=== PATIENT | female | born 1995 | race Caucasian/White ===

== ENCOUNTER → 2016-11-02 | Outpatient (CLI) | payer BC ==
[~2016-11-02] MED LIST: ALBU18002 INH; BUTACAP36 PO; DULO-24 PO; FEXO1TAB49 PO; FLUT1INH INH; GADAVIST IV PRN; HYDR-5688 PO; LORA-741 PO; MONT1TAB3 PO; QUET1TAB34 PO; QVRINH80 INH; RIZA10TA18 PO; VENL150C56 PO; VERA180T33 PO
--- NOTE | 2016-11-02 16:50 | DIAGNOSTIC IMAGING REPORT ---
MRI OF THE BRAIN AND IACS WITHOUT AND WITH IV CONTRAST CLINICAL HISTORY: Z87.828 History of traumatic head injury LIGHTHEADEDNESS, DIZZINESS, BALANCE DISORDER. TINNITUS. COMPARISON STUDY: No previous studies for comparison. TECHNIQUE: MRI of the brain was performed from the vertex to the skull base utilizing various T1 and T2 weighted sequences. Following the IV administration of 7.5 mL of Gadavist contrast, additional enhanced images were obtained. FINDINGS: Sagittal T1, axial diffusion, proton density and T2 weighted axial, coronal FLAIR, and pre and post axial T1-weighted images were acquired. These were supplemented with post gadolinium coronal T1 weighted images. No intra or extra-axial mass lesions are visualized. Axial diffusion-weighted images reveal no evidence of acute or subacute infarction. There is no evidence of ventricular dilatation. Proton density T2-weighted and FLAIR images reveal no significant intraparenchymal signal abnormalities. There are no abnormal flow voids. There is no evidence of pathologic enhancement. No cerebellopontine angle masses are visualized. The 7th and 8th nerve complexes appear normal bilaterally. IMPRESSION: Normal MRI of the brain. Electronically signed by: Zach Arreola M.D. 11/02/2016 4:48 PM Dictated Date/Time: 11/02/2016 4:45 PM
== END | disposition home or self-care (01) ==
LOC: C.MRI 14:59
PROVIDERS: ATTEND Physician Assistant
DX: Z87.828 Personal history of other (healed) physical injury and trauma (principal)

== ENCOUNTER 2016-12-23 19:50 | Emergency (ER) | payer BC ==
[~2016-12-23] VITALS: Ht 172.7 cm; Wt 82.1 kg
[2016-12-23 19:54] VITALS: TEMP 36.8; Ht 172.7 cm; Wt 82.1 kg
--- NOTE | 2016-12-23 20:20 | EMERGENCY ROOM VISIT NOTE ---
ED Visit Note First contact with patient: 20:11 CHIEF COMPLAINT: Finger laceration HISTORY OF PRESENT ILLNESS: This 21-year-old female patient presents to the emergency department ambulatory after cutting the left third finger with a coremaker earlier tonight. The bleeding has stopped. Denies weakness or numbness of the finger. The patient has full range of motion of the fingers. The patient denies any pain. The patient denies any other injuries. The patient' s tetanus shot is possibly not up to date. REVIEW OF SYSTEMS: A 6 system review of systems was completed with positives and pertinent negatives listed in the HPI. ALLERGIES: No known drug allergies MEDICATIONS: See nursing notes PMH: Chronic migraine, bipolar, anxiety, asthma SOCIAL HISTORY: The patient lives locally PHYSICAL EXAM: Vital Signs: Reviewed Nurse's notes, vital signs stable. GENERAL : This is a 21-year-old female, in no acute distress, well developed, well nourished. SKIN: There is a there is small, less than 0.5 cm skin avulsion type laceration on the distal aspect of the left third finger. The edges do not gape apart with traction. There is no foreign material in the wound and it looks clean. There is know bleeding. No deep structures such as tendons, bones, or nerves are seen in the base of the wound. Extension and flexion of the finger is full and strong. Full range of motion of the wrist and other fingers. Capillary refill less than 2 seconds. Normal sensation to light and sharp touch. EMERGENCY DEPARTMENT COURSE: I examined the patient. This is a very superficial skin avulsion. The wound was cleaned with saline. Gelfoam and bulky dressing were placed. The patient tolerated the procedure well. The patient was given a tetanus booster. The patient was discharged home in good condition. Current/Historical Medications Scheduled Beclomethasone Dip (Qvar), 1 PUFF INH DAILY Duloxetine Hcl (Cymbalta), 20 MG PO DAILY Fexofenadine Hcl (Susi Allergy), 180 MG PO DAILY Fluticasone Furoate-Vilanterol (Breo Ellipta), 1 PUFF INH QPM Montelukast Sodium (Singulair), 10 MG PO DAILY Quetiapine Fumarate (Seroquel), 200 MG PO QPM Venlafaxine Hcl (Effexor Extended Rel), 150 MG PO DAILY Verapamil Hcl (Calan Sr Ext Rel), 180 MG PO DAILY Scheduled PRN Albuterol Sulfate (Proair Respiclick), 2 PUFFS INH Q4H PRN for SOB/Wheezing Ggidxybqwj-Pwjuzvh-Ttywerfb (Fiorinal), 1 CAP PO BID PRN for Headache Lorazepam (Ativan), 0.5 MG PO BID PRN for Anxiety Rizatriptan Benzoate (Maxalt), 10 MG PO UD PRN for HEADACHE Allergies Coded Allergies: Dairy (Verified Adverse Reaction, Unknown, GI UPSET, 12/23/16) Uncoded Allergies: CONTRAST DYE (Allergy, Severe, ANAPHYLAXIS, 12/23/16) Vital Signs Date Time Temp Pulse Resp B/P (MAP) Pulse Ox O2 Delivery O2 Flow Rate FiO2 12/23/16 21:00 76 18 128/76 99 12/23/16 19:54 36.8 126 20 130/83 100 Room Air Medications Administered Medications (Trade) Dose Ordered Sig/Orin Route Start Time Stop Time Status Last Admin Dose Admin Diphtheria/ Pertussis/Tetanus Vacc (Adacel Inj) 0.5 ml ONCE ONCE IM. 12/23/16 20:30 12/23/16 20:31 DC 12/23/16 20:57 0.5 ML Departure Information Impression Primary Impression: Avulsion of skin of finger Dispostion Home / Self-Care Condition GOOD Referrals [facility] (PCP) Patient Instructions My [facility] Additional Instructions Keep dressing in place for 48 hrs, then remove. Soak foam in water until it falls off easily, then clean wound daily, cover with an antibiotic ointment and keep covered until it heals. Return for any signs of infection (increasing redness, swelling, drainage, fever). Ice and elevate for swelling and pain. Ibuprofen 600 mg every 6 hrs for pain. Keep covered when in sun until fully healed then SPF 50 or higher for one year. Vitamin E oil if desired two weeks after fully healed for reduction of scar. Problem Qualifiers Primary Impression: Avulsion of skin of finger Encounter type: initial encounter Qualified Codes: S61.209A - Unspecified open wound of unspecified finger without damage to nail, initial encounter
[2016-12-23] MEDS ORDERED: GELATIN SPONGE 12-7MM EXT ONE (20:30)
[2016-12-23] MEDS ORDERED: DIPHTHERIA/TETANUS/PERTUSSIS 0.5 ML SYR/VIAL IM. ONE (20:30)
[2016-12-23] MEDS ORDERED: FEXO1TAB49 PO (20:34)
[2016-12-23] MEDS ORDERED: MONT1TAB3 PO (20:34)
[2016-12-23] MEDS ORDERED: ALBU18002 INH (20:35)
[2016-12-23] MEDS ORDERED: QVRINH80 INH (20:36)
[2016-12-23] MEDS ORDERED: FLUT1INH INH (20:37)
[2016-12-23] MEDS ORDERED: BUTACAP36 PO (20:38)
[2016-12-23] MEDS ORDERED: RIZA10TA18 PO (20:39)
[2016-12-23] MEDS ORDERED: VENL150C56 PO (20:40)
[2016-12-23] MEDS ORDERED: VERA180T33 PO (20:41)
[2016-12-23] MEDS ORDERED: DULO-24 PO (20:42)
[2016-12-23] MEDS ORDERED: QUET1TAB34 PO (20:43)
[2016-12-23] MEDS ORDERED: LORA-741 PO (20:44)
[2016-12-23 21:00] VITALS: BP 128/76; PULSE 76; O2SAT 99
== END 2016-12-23 21:51 | disposition home or self-care (01) ==
LOC: C.EDB 19:51 → C.EDD 21:51
DX: S61.213A Laceration without foreign body of left middle finger without damage to nail, initial encounter (principal); W45.8XXA Other foreign body or object entering through skin, initial encounter; Z23 Encounter for immunization; F31.9 Bipolar disorder, unspecified; J45.909 Unspecified asthma, uncomplicated; Z79.899 Other long term (current) drug therapy; Z91.011 Allergy to milk products

== ENCOUNTER 2017-01-30 15:21 | Emergency (ER) | payer BC ==
[~2017-01-30] VITALS: Ht 172.7 cm; Wt 81.5 kg
[~2017-01-30 15:21] MED LIST changes: -GADAVIST IV PRN; -HYDR-5688 PO
[2017-01-30 15:29] VITALS: TEMP 36.7; Ht 172.7 cm; Wt 81.5 kg
[2017-01-30] MEDS ORDERED: MAGNESIUM SULFATE 1GM / D5W 1 GM BAG IV STA (16:36)
[2017-01-30] MEDS ORDERED: KETOROLAC TROMETHAMINE 30 MG/ML VIAL IV STA (16:36)
[2017-01-30] MEDS ORDERED: ONDANSETRON INJ 2 MG/ML 2 ML VIAL IV STA (16:36)
[2017-01-30] MEDS ORDERED: DiphenhydrAMINE HCL 50 MG/ML VIAL IV STA (16:36)
--- NOTE | 2017-01-30 16:43 | EMERGENCY ROOM VISIT NOTE ---
History First contact with patient: 16:18 Chief Complaint: HEADACHE Stated Complaint: MIGRAINE, DIZZY, N, TROUBLE HEARING, LIGHT SENSITI History of Present Illness The patient is a 21 year old female who presents to the Emergency Room with complaints of a migraine headache that has been going on for 3 days. The patient has a history of migraines. She describes it as a throbbing sensation in the back of her head and also on the right side of her head. She also has photosensitivity. She has had nausea without vomiting. She denies any neck pain. She is feeling fairly weak, and says that she has not eaten much over the last several days due to the headache and nausea. She denies any recent illnesses such as cough, sinus pain, sore throat or fever. She tried Tylenol Excedrin and Maxalt with minimal relief of the pain. Review of Systems 10 system review performed and negative unless noted in HPI or below Past Medical/Surgical History Bipolar disorder, anxiety Family History Diabetes, hypertension, heart disease Social History Smoking Status: Never Smoker Alcohol Use: none Drug Use: none Marital Status: single Occupation Status: [employer] student Current/Historical Medications Scheduled Beclomethasone Dip (Qvar), 1 PUFF INH DAILY Duloxetine Hcl (Cymbalta), 60 MG PO DAILY Fexofenadine Hcl (Susi Allergy), 180 MG PO DAILY Fluticasone Furoate-Vilanterol (Breo Ellipta), 1 PUFF INH QPM Montelukast Sodium (Singulair), 10 MG PO DAILY Quetiapine Fumarate (Seroquel), 200 MG PO QPM Venlafaxine Hcl (Effexor Extended Rel), 75 MG PO DAILY Verapamil Hcl (Calan Sr Ext Rel), 180 MG PO DAILY Scheduled PRN Albuterol Sulfate (Proair Respiclick), 2 PUFFS INH Q4H PRN for SOB/Wheezing Bdkpmhryqt-Zvsjrjm-Xetfvzwu (Fiorinal), 1 CAP PO BID PRN for Headache Hydrocodone/Acetaminophen 5MG/325MG ([place]aitland 5MG/325MG), 1-2 TABLET PO Q4H PRN for Pain Lorazepam (Ativan), 0.5 MG PO BID PRN for Anxiety Rizatriptan Benzoate (Maxalt), 10 MG PO UD PRN for HEADACHE Physical Exam Vital Signs Date Time Temp Pulse Resp B/P (MAP) Pulse Ox O2 Delivery O2 Flow Rate FiO2 01/30/17 20:07 116 18 134/79 100 01/30/17 19:07 103 16 130/73 100 Room Air 01/30/17 17:17 79 18 127/93 100 Room Air 01/30/17 15:29 36.7 91 18 130/87 97 Physical Exam VITALS: Vitals are noted on the nurse's note and reviewed by myself. Vital signs stable. GENERAL: 21-year-old female, in no acute distress, nondiaphoretic, well- developed well-nourished. SKIN: The skin was without rashes, erythema, edema, or bruising. HEAD: Normocephalic atraumatic. EARS: External auditory canals clear, tympanic membranes pearly quintero without erythema or effusion bilaterally. EYES: Pupils equal round and reactive to light and accommodation. Conjunctivae without injection, sclerae without icterus. Extraocular movements intact. MOUTH: Mucous membranes moist. Tonsils are not enlarged. Pharynx without erythema or exudate. Uvula midline. Airway patent. Tongue does not deviate. NECK: Supple without nuchal rigidity. No lymphadenopathy. Cervical spine is nontender. No JVD. HEART: Regular rate and rhythm without murmurs gallops or rubs. LUNGS: Clear to auscultation bilaterally without wheezes, rales or rhonchi. No accessory muscle use. ABDOMEN: Positive bowel sounds x 4.Soft, nontender, without organomegaly. No guarding or rebound tenderness. MUSCULOSKELETAL: No muscle atrophy, erythema, or edema noted. Normal gait. Strength 5/5 throughout. NEURO: Patient was alert and oriented to person place and time. Cerebellar function intact. Normal heel to toe walking. Negative Romberg. Normal sensation to touch. No focal neurological deficits. Medical Decision & Procedures Laboratory Results 01/30/17 17:07 Red Blood Count 3.51, Mean Corpuscular Volume 86.9, Mean Corpuscular Hemoglobin 27.9, Mean Corpuscular Hemoglobin Concent 32.1, Mean Platelet Volume 9.8, Neutrophils (%) (Auto) 58.4, Lymphocytes (%) (Auto) 23.4, Monocytes (%) (Auto) 14.9, Eosinophils (%) (Auto) 2.9, Basophils (%) (Auto) 0.2, Neutrophils # (Auto ) 3.17, Lymphocytes # (Auto) 1.27, Monocytes # (Auto) 0.81, Eosinophils # (Auto ) 0.16, Basophils # (Auto) 0.01 01/30/17 17:07 Test 01/30/17 17:00 01/30/17 17:07 Urine Test NEG (NEG) White Blood Count 5.43 K/uL (4.8-10.8) Red Blood Count 3.51 M/uL (4.2-5.4) Hemoglobin 9.8 g/dL (12.0-16.0) Hematocrit 30.5 % (37-47) Mean Corpuscular Volume 86.9 fL (80-100) Mean Corpuscular Hemoglobin 27.9 pg (25-34) Mean Corpuscular Hemoglobin Concent 32.1 g/dl (32-36) Platelet Count 252 K/uL (130-400) Mean Platelet Volume 9.8 fL (7.4-10.4) Neutrophils (%) (Auto) 58.4 % Lymphocytes (%) (Auto) 23.4 % Monocytes (%) (Auto) 14.9 % Eosinophils (%) (Auto) 2.9 % Basophils (%) (Auto) 0.2 % Neutrophils # (Auto) 3.17 K/uL (1.4-6.5) Lymphocytes # (Auto) 1.27 K/uL (1.2-3.4) Monocytes # (Auto) 0.81 K/uL (0.11-0.59) Eosinophils # (Auto) 0.16 K/uL (0-0.5) Basophils # (Auto) 0.01 K/uL (0-0.2) RDW Standard Deviation 44.8 fL (36.4-46.3) RDW Coefficient of Variation 14.2 % (11.5-14.5) Immature Granulocyte % (Auto) 0.2 % Immature Granulocyte # (Auto) 0.01 K/uL (0.00-0.02) Anion Gap 8.0 mmol/L (3-11) Est Creatinine Clear Calc Drug Dose 189.6 ml/min Estimated GFR () > 150.0 Estimated GFR (Non- 136.7 BUN/Creatinine Ratio 22.0 (10-20) Calcium Level 8.5 mg/dl (8.5-10.1) Total Bilirubin 0.2 mg/dl (0.2-1) Aspartate Amino Transf (AST/SGOT) 13 U/L (15-37) Alanine Aminotransferase (ALT/SGPT) 20 U/L (12-78) Alkaline Phosphatase 65 U/L (45-117) Total Protein 6.7 gm/dl (6.4-8.2) Albumin 3.7 gm/dl (3.4-5.0) Globulin 3.0 gm/dl (2.5-4.0) Albumin/Globulin Ratio 1.2 (0.9-2) Medications Administered Medications (Trade) Dose Ordered Sig/Orin Route Start Time Stop Time Status Last Admin Dose Admin Ketorolac Tromethamine (Toradol Inj) 30 mg NOW STAT IV 01/30/17 16:36 01/30/17 16:39 DC 01/30/17 17:06 30 MG Diphenhydramine HCl (Benadryl Inj) 25 mg NOW STAT IV 01/30/17 16:36 01/30/17 16:39 DC 01/30/17 17:05 25 MG Ondansetron HCl (Zofran Inj) 4 mg NOW STAT IV 01/30/17 16:36 01/30/17 16:39 DC 01/30/17 17:05 4 MG Sodium Chloride 1,000 ml @ 999 mls/hr Q1H1M ONCE IV 01/30/17 16:45 01/30/17 17:45 DC 01/30/17 17:05 999 MLS/HR Magnesium Sulfate (Magnesium Sulfate) 1 gm NOW STAT IV 01/30/17 16:36 01/30/17 16:39 DC 01/30/17 17:05 1 GM Potassium Chloride (Klor-Con M10) 40 meq STK-MED ONCE .ROUTE 01/30/17 18:07 01/30/17 18:08 DC 01/30/17 18:10 40 MEQ Promethazine HCl 12.5 mg/Sodium Chloride 50.5 ml @ 204 mls/hr NOW STAT IV 01/30/17 18:43 01/30/17 18:57 DC 01/30/17 19:03 204 MLS/HR Hydromorphone HCl (Dilaudid Inj) 0.5 mg NOW STAT IV 01/30/17 18:43 10/3/17 18:44 DC 01/30/17 19:04 0.5 MG ED Course Patient was seen and examined Vital signs including blood pressure were reviewed medications list was verified with patient Labs were obtained, and a saline lock was established The patient was given Toradol, Benadryl, Zofran and magnesium for her symptoms. She was hydrated with 1 L of normal saline. Upon reevaluation, the patient's symptoms were better. She was however still complaining of a headache and nausea (despite asking for food from the cafeteria ) The patient was given Dilaudid 0.5 mg IV and Phenergan 12.5 mg IV. She felt better after these medications. Upon reevaluation, the patient was now feeling much better. She was comfortable being discharged home. She was tolerating a diet. I reviewed discharge instructions the patient. They voiced understanding and had no further questions. Medical Decision Differential includes: Acute intracranial bleed, trauma, meningitis, encephalitis, increased intracranial pressure, mass or mass effect, facial or dental infection, temporal arteritis, CVA, TIA, acute hypertensive emergency, sinusitis, carbon monoxide exposure. This patient is a 21-year-old female that presents to the emergency department with complaints of a migraine headache. She has a history of migraines. She was nontoxic in appearance. No recent illnesses. She was afebrile. There is no leukocytosis. Her neurologic exam is intact. I did not find any imaging necessary. She had good pain relief in the emergency department. She was advised to follow-up with her primary care physician in the near future, and agreed to return here with any new or worsening symptoms This chart was completed in part utilizing [employer] Speech Voice Recognition software. Attempts were made to minimize the grammatical errors, random word insertions, pronoun errors and incomplete sentences. Any formal questions or concerns about the content, text or information contained within the body of this dictation should be directly addressed to the provider for clarification. Medication Reconcilliation Current Medication List: was personally reviewed by me Blood Pressure Screening Patient's blood pressure: Normal blood pressure Impression Primary Impression: Headache Departure Information Dispostion Home / Self-Care Condition GOOD Prescriptions Hydrocodone/Acetaminophen 5MG/325MG (Maitland 5MG/325MG) Tab 1-2 TABLET PO Q4H Y for Pain, #8 TAB For Initial Treatment Prov: Whitney Corona PA-C 01/30/17 Referrals No Doctor, Assigned (PCP) Patient Instructions My [facility] Additional Instructions DO NOT drive, drink alcohol, operate machinery, or perform dangerous activities today. You were given medications in the ER that can affect your ability to safely function or operate a vehicle. Rest today in a quiet, peaceful, dark environment and get a full 8-10 hrs of sleep tonight. Avoid loud noises, smoke/smoking, alcohol, bright lights, stress, or physical exertion today to minimize the chance the headache may return. Continue current medications as prescribed. . Ibuprofen(Motrin, Advil) may be used for fever or pain. Use 600mg every six hours as needed. Take with food. Avoid using more than 2400mg in a 24 hour period. Do not use 2400mg per day for more than three consecutive days without physician direction. Prolonged inappropriate use can lead to stomach upset or ulcers. Maitland 1-2 tabs every 4 hours for severe pain. Do not drink alcohol or drive while taking this medication. This may be taken with ibuprofen, but avoid Tylenol. Return to the ER for passing out, worsening headache, vision problems, neck stiffness/pain, fevers, vomiting, worsening of your condition, or as needed. Follow up with your primary physician in 2-3 days for a recheck of your current condition. School Instructions Specific Date: please excuse from 01/30-01/31. May return on 02/01
[2017-01-30] MEDS ORDERED: SODIUM CHLORIDE 0.9% 1000ML 1,000 ML IV ONE (16:45)
[2017-01-30 17:24] LABS: BASO % 0.2 %; BASO ABS # 0.01 K/uL (0-0.2); COMPLETE YES; EOS % 2.9 %; HEMATOCRIT 30.5 % (37-47); IG% 0.2 %; LYMPH % 23.4 %; LYMPH ABS # 1.27 K/uL (1.2-3.4); MEAN CELL VOLUME 86.9 fL (80-100); MEAN CORPUSCULAR HEMOGLOBIN 27.9 pg (25-34); MEAN CORPUSCULAR HGB CONC 32.1 g/dl (32-36); MEAN PLATELET VOLUME 9.8 fL (7.4-10.4); MONO % 14.9 %; NEUT % 58.4 %; PLATELET COUNT 252 K/uL (130-400); RED BLOOD COUNT 3.51 M/uL (4.2-5.4); WHITE BLOOD COUNT 5.43 K/uL (4.8-10.8)
[2017-01-30 17:47] LABS: ALT/SGPT 20 U/L (12-78); AST/SGOT 13 U/L (15-37); BLOOD UREA NITROGEN 12 mg/dl (7-18); CALCIUM 8.5 mg/dl (8.5-10.1); CARBON DIOXIDE 26 mmol/L (21-32); CHLORIDE 107 mmol/L (98-107); CREATININE 0.53 mg/dl (0.60-1.20); GLUCOSE 84 mg/dl (70-99); POTASSIUM 3.3 mmol/L (3.5-5.1); SODIUM 141 mmol/L (136-145)
[2017-01-30 17:49] LABS: ALB/GLOB RATIO 1.2 (0.9-2); ALKALINE PHOSPHATASE 65 U/L (45-117)
[2017-01-30] MEDS ORDERED: POTASSIUM CHLORIDE 10 MEQ TABCR PO STA (17:50)
[2017-01-30] MEDS ORDERED: POTASSIUM CHLORIDE 10 MEQ TABCR ONE (18:07)
[2017-01-30] MEDS ORDERED: PROMETHAZINE HCL INJ 12.5 MG in SODIUM CHLORIDE 0.9% 50ML 50 ML IV STA (18:43)
[2017-01-30] MEDS ORDERED: HYDROmorphone INJ 0.5 MG/0.5 ML SYR IV STA (18:43)
[2017-01-30] MEDS ORDERED: HYDR-5688 PO (19:44)
[2017-01-30 20:07] VITALS: BP 134/79; PULSE 116; O2SAT 100
== END 2017-01-30 20:07 | disposition home or self-care (01) ==
LOC: C.EDB 15:23
DX: R51 Headache (principal); F31.9 Bipolar disorder, unspecified; F41.9 Anxiety disorder, unspecified; Z79.899 Other long term (current) drug therapy

== ENCOUNTER → 2017-08-27 | Outpatient (CLI) | payer BC | END | disposition home or self-care (01) | LOC: C.RDSM 14:27 | PROVIDERS: ATTEND Family Medicine Sports Medicine | DX: M79.645 Pain in left finger(s) (principal) ==